=== PATIENT | male | born 1940 | race African-American/Black ===

== ENCOUNTER 2017-05-02 11:29 | Inpatient (IN) | payer OTHER, MEDICAID ==
[~2017-05-02] VITALS: Ht 167.6 cm; Wt 72.6 kg
[~2017-05-02 11:29] MED LIST: ALBU18HF2; AMLO10TA4 PO; ASPI-867; DOCU250C89; FLUT1DIS3; HYDR-4005; PRED5TAB; VALS1TAB34 PO
[2017-05-02] MEDS ORDERED: MORPHINE SULFATE 4 MG/ML CPJ (NOT FOR IM USE) IV STA (11:43)
[2017-05-02] MEDS ORDERED: ONDANSETRON HCL 4MG/2ML VIAL IV STA (11:43)
[2017-05-02 11:56] LABS: BASOPHILS % 1.9 % (0.0-2.0); EOSINOPHILS % 3.2 % (0.0-5.0); HEMATOCRIT. 38.3 % (42.0-52.0); HEMOGLOBIN. 12.8 g/dL (14.0-18.0); LYMPHOCYTES % 41.5 % (20.0-50.0); MEAN CORPUSCULAR HEMOGLOBIN 29.6 pg (28.0-32.0); MEAN CORPUSCULAR VOLUME 88.6 fL (80.0-94.0); MEAN PLATELET VOLUME 7.5 fl (7.4-10.4); MONOCYTES % 10.9 % (2.0-8.0); NEUTROPHILS % 42.5 % (40.0-76.0); PLATELET 209 x1000/uL (130-400); RED BLOOD CELL COUNT 4.33 mill/uL (4.7-6.1); RED CELL DISTRIBUTION WIDTH 16.7 % (11.6-14.6)
[2017-05-02 12:03] LABS: PROTHROMBIN TIME 10.7 sec (9.4-11.6)
[2017-05-02 12:14] LABS: CARBON DIOXIDE 28 mEq/L (21-32); CHLORIDE 105 mEq/L (98-107); TROPONIN I < 0.02 ng/mL (0.00-0.04)
[2017-05-02] MEDS ORDERED: CLONIDINE 0.1MG TABLET PO PRN (13:45)
[2017-05-02] MEDS ORDERED: ACETAMINOPHEN 325MG TABLET PO PRN (13:45)
[2017-05-02] MEDS ORDERED: DIPHENHYDRAMINE 50MG/ML VIAL IV PRN (13:45)
[2017-05-02] MEDS ORDERED: ONDANSETRON HCL 4MG/2ML VIAL IV PRN (13:45)
[2017-05-02] MEDS ORDERED: HYDROCODONE/ACETAMINOPHEN 5/325MG TABLET PO PRN (13:45)
[2017-05-02 16:16] VITALS: BP 125/66
[2017-05-02 16:26] VITALS: BP 117/58
[2017-05-02] MEDS: AMLODIPINE 2.5MG TABLET PO SCH (17:00)
[2017-05-02] MEDS: IPRATROPIUM/ALBUTEROL 0.5-3(2.5)MG/3ML NEB INH PRN (19:56)
[2017-05-02 20:00] VITALS: BP 100/46
[2017-05-02 23:32] LABS: CLARITY URINE CLEAR (CLEAR); COLOR URINE YELLOW (YELLOW); GLUCOSE URINE NEGATIVE (NEGATIVE); KETONES URINE NEGATIVE (NEGATIVE); LEUKOCYTE ESTERASE URINE NEGATIVE (NEGATIVE); NITRITE URINE NEGATIVE (NEGATIVE); OCCULT BLOOD URINE NEGATIVE (NEGATIVE); PROTEIN URINE NEGATIVE (NEGATIVE); SPECIFIC GRAVITY URINE 1.022 (1.005-1.030)
[2017-05-03] VITALS: BP 107/57
[2017-05-03 01:37] LABS: *AMPHETAMINES SCREEN URINE NEGATIVE (NEGATIVE); *BARBITURATES SCREEN URINE NEGATIVE (NEGATIVE); *BENZODIAZEPINES SCREEN URINE NEGATIVE (NEGATIVE); *COCAINE SCREEN URINE NEGATIVE (NEGATIVE); CANNABINOID URINE SCREEN NEGATIVE (NEGATIVE); METHADONE URINE SCREEN NEGATIVE (NEGATIVE); OPIATES URINE SCREEN PRESUMTIVE POSITIVE (NEGATIVE); PHENCYCLIDINE URINE SCREEN NEGATIVE (NEGATIVE)
[2017-05-03] MEDS: IPRATROPIUM/ALBUTEROL 0.5-3(2.5)MG/3ML NEB INH PRN ×4 (02:47→16:16)
[2017-05-03 04:00] VITALS: BP 104/51
[2017-05-03 06:06] LABS: BASOPHILS % 1.5 % (0.0-2.0); EOSINOPHILS % 2.4 % (0.0-5.0); HEMOGLOBIN. 11.9 g/dL (14.0-18.0); LYMPHOCYTES % 39.8 % (20.0-50.0); MEAN CORPUSCULAR HEMOGLOBIN 29.8 pg (28.0-32.0); MEAN CORPUSCULAR VOLUME 87.5 fL (80.0-94.0); MEAN PLATELET VOLUME 7.8 fl (7.4-10.4); MONOCYTES % 10.9 % (2.0-8.0); NEUTROPHILS % 45.4 % (40.0-76.0); PLATELET 194 x1000/uL (130-400); RED CELL DISTRIBUTION WIDTH 15.9 % (11.6-14.6)
[2017-05-03 06:48] LABS: CHLORIDE 102 mEq/L (98-107)
[2017-05-03 07:12] LABS: CARBON DIOXIDE 26 mEq/L (21-32); HDL CHOLESTEROL 92 mg/dL (40-59); LDL CHOLESTEROL 68 mg/dL (5-100); TROPONIN I < 0.02 ng/mL (0.00-0.04)
[2017-05-03 08:58] VITALS: BP 118/54
[2017-05-03] MEDS: AMLODIPINE 2.5MG TABLET PO SCH ×2 (09:00→17:00)
[2017-05-03] MEDS ORDERED: ASPIRIN 81MG EC TABLET PO SCH (09:00)
[2017-05-03 12:03] VITALS: BP 107/41
[2017-05-03 16:01] VITALS: BP 128/76
[2017-05-03 16:29] VITALS: BP 122/52
== END 2017-05-03 17:25 | disposition home or self-care (01) | DRG 311 ==
LOC: ER 11:29 → 6WST 13:11 → EDBEDREQ 13:14 → EDBEDREQTM 13:14 → ENRESERV 14:21
PROVIDERS: ADMIT Internal Medicine; ATTEND Internal Medicine
DX: I24.9 Acute ischemic heart disease, unspecified (principal); E46 Unspecified protein-calorie malnutrition; I11.0 Hypertensive heart disease with heart failure; I50.9 Heart failure, unspecified; J44.9 Chronic obstructive pulmonary disease, unspecified; D64.9 Anemia, unspecified; E78.1 Pure hyperglyceridemia; M19.90 Unspecified osteoarthritis, unspecified site; G89.29 Other chronic pain; F14.10 Cocaine abuse, uncomplicated; F17.210 Nicotine dependence, cigarettes, uncomplicated; Z79.82 Long term (current) use of aspirin; Z90.49 Acquired absence of other specified parts of digestive tract; Z79.899 Other long term (current) drug therapy; Z68.25 Body mass index [BMI] 25.0-25.9, adult
CPT/HCPCS: 36415; 71010; 80053; 80061; 80305; 81003; 83735; 83880; 84443; 84484; 85025; 85610; 87040; 87086; 93005; 94640; 94664; 96374; 96375; 99285; J2270; J2405; J7620

== ENCOUNTER 2017-05-06 18:59 | Emergency (ER) | payer MEDICARE, MEDICAID ==
[~2017-05-06] VITALS: Ht 180.3 cm; Wt 88.0 kg
[2017-05-06] MEDS ORDERED: IPRATROPIUM BROMIDE (0.02%) 0.5MG/2.5ML NEB HHN STA (19:30)
[2017-05-06] MEDS ORDERED: METHYLPREDNISOLONE SOD SUCC 125 MG/2 ML VIAL IV STA (19:30)
[2017-05-06] MEDS ORDERED: ALBUTEROL (0.083%) 2.5MG/3ML NEB HHN SCH (19:30)
[2017-05-06 20:38] LABS: BASOPHILS % 1.3 % (0.0-2.0); EOSINOPHILS % 1.8 % (0.0-5.0); HEMATOCRIT. 40.6 % (42.0-52.0); HEMOGLOBIN. 13.6 g/dL (14.0-18.0); MEAN CORPUSCULAR HEMOGLOBIN 29.4 pg (28.0-32.0); MEAN CORPUSCULAR VOLUME 87.7 fL (80.0-94.0); MEAN PLATELET VOLUME 7.8 fl (7.4-10.4); MONOCYTES % 8.7 % (2.0-8.0); NEUTROPHILS % 56.2 % (40.0-76.0); PLATELET 205 x1000/uL (130-400); RED BLOOD CELL COUNT 4.63 mill/uL (4.7-6.1); RED CELL DISTRIBUTION WIDTH 16.7 % (11.6-14.6)
[2017-05-06 20:43] LABS: PROTHROMBIN TIME 10.7 sec (9.4-11.6)
[2017-05-06 20:46] LABS: CARBON DIOXIDE 25 mEq/L (21-32); CHLORIDE 104 mEq/L (98-107)
[2017-05-06 20:53] LABS: TROPONIN I < 0.02 ng/mL (0.00-0.04)
[2017-05-06 23:51] VITALS: BP 113/70
== END 2017-05-06 23:51 | disposition home or self-care (01) ==
LOC: ER 20:41
DX: J44.1 Chronic obstructive pulmonary disease with (acute) exacerbation (principal); I11.0 Hypertensive heart disease with heart failure; M19.90 Unspecified osteoarthritis, unspecified site; Z79.82 Long term (current) use of aspirin
CPT/HCPCS: 36415; 80053; 83880; 84484; 85025; 85610; 93005; 99285; 99406

== ENCOUNTER 2017-05-12 22:30 | Emergency (ER) | payer MEDICARE, MEDICAID ==
[~2017-05-12] VITALS: Ht 167.6 cm; Wt 73.0 kg
[2017-05-12 22:35] VITALS: BP 135/61
== END 2017-05-13 02:37 | disposition left against medical advice (07) ==
LOC: ER 22:30
DX: Z53.21 Procedure and treatment not carried out due to patient leaving prior to being seen by health care provider (principal)

== ENCOUNTER 2017-09-19 09:55 | Inpatient (IN) | payer MEDICARE, MEDICAID ==
[~2017-09-19] VITALS: Ht 167.6 cm; Wt 70.8 kg
[~2017-09-19 09:55] MED LIST changes: -ALBU18HF2; +ALBU18HF2 INH; -ASPI-867; +ASPI-867 PO; -DOCU250C89; +DOCU250C89 PO; -FLUT1DIS3; +FLUT1DIS3 ORI; +GABA-529 PO; -HYDR-4005; +HYDR-4005 PO
[2017-09-19] MEDS ORDERED: NITROGLYCERIN OINT 1GM/INCH UDPKT TD STA (10:14)
[2017-09-19] MEDS ORDERED: IPRATROPIUM BROMIDE (0.02%) 0.5MG/2.5ML NEB HHN STA (10:14)
[2017-09-19] MEDS ORDERED: ASPIRIN 81MG TABLET PO STA (10:14)
[2017-09-19] MEDS ORDERED: ALBUTEROL (0.083%) 2.5MG/3ML NEB HHN STA (10:14)
[2017-09-19] MEDS ORDERED: METHYLPREDNISOLONE SOD SUCC 125 MG/2 ML VIAL IV STA (10:14)
[2017-09-19] MEDS ORDERED: SODIUM CHLORIDE 0.9% 1000ML BAG (SEPSIS BOLUS) IV ONE (10:15)
[2017-09-19] MEDS ORDERED: LEVOFLOXACIN 750MG PREMIX 150 ML IV ONE (10:15)
[2017-09-19] MEDS ORDERED: OSELTAMIVIR 75MG CAPSULE PO ONE (10:15)
[2017-09-19] MEDS ORDERED: ACETAMINOPHEN 325MG TABLET PO ONE (10:30)
[2017-09-19 10:45] LABS: BASOPHILS % 0.5 % (0.0-2.0); EOSINOPHILS % 0.9 % (0.0-5.0); HEMATOCRIT. 36.2 % (42.0-52.0); HEMOGLOBIN. 11.8 g/dL (14.0-18.0); LYMPHOCYTES % 17.5 % (20.0-50.0); MEAN CORPUSCULAR HEMOGLOBIN 27.9 pg (28.0-32.0); MEAN CORPUSCULAR VOLUME 85.2 fL (80.0-94.0); MEAN PLATELET VOLUME 7.1 fl (7.4-10.4); MONOCYTES % 8.2 % (2.0-8.0); NEUTROPHILS % 72.9 % (40.0-76.0); PLATELET 228 x1000/uL (130-400); RED BLOOD CELL COUNT 4.24 mill/uL (4.7-6.1); RED CELL DISTRIBUTION WIDTH 17.7 % (11.6-14.6)
[2017-09-19 10:53] LABS: PARTIAL THROMBOPLASTIN TIME 27.7 sec (23.4-31.0); PROTHROMBIN TIME 10.7 sec (9.4-11.6)
[2017-09-19 11:01] LABS: CHLORIDE 102 mEq/L (98-107); TROPONIN I < 0.02 ng/mL (0.00-0.04)
[2017-09-19 11:16] LABS: CLARITY URINE CLEAR (CLEAR); COLOR URINE YELLOW (YELLOW); KETONES URINE NEGATIVE (NEGATIVE); LEUKOCYTE ESTERASE URINE NEGATIVE (NEGATIVE); NITRITE URINE NEGATIVE (NEGATIVE); OCCULT BLOOD URINE NEGATIVE (NEGATIVE); PH URINE >=9.0 (4.5-8.0); PROTEIN URINE NEGATIVE (NEGATIVE); SPECIFIC GRAVITY URINE 1.012 (1.005-1.030); UROBILINOGEN URINE 0.2 E.U./dL (0.2-1.0)
[2017-09-19 14:30] VITALS: BP 107/51
[2017-09-19] MEDS ORDERED: HYDROCODONE/APAP 7.5/325MG 1 TAB TABLET PO PRN (15:15)
[2017-09-19] MEDS ORDERED: ACETAMINOPHEN 325MG TABLET PO PRN (15:15)
[2017-09-19] MEDS ORDERED: IPRATROPIUM/ALBUTEROL 0.5-3(2.5)MG/3ML NEB HHN PRN (15:15)
[2017-09-19 16:00] VITALS: BP 107/52
[2017-09-19 20:00] VITALS: BP 122/50
[2017-09-19 22:00] LABS: CREATINE KINASE 350 IU/L (39-308); TROPONIN I < 0.02 ng/mL (0.00-0.04)
[2017-09-20] VITALS: BP 109/50
[2017-09-20 00:50] LABS: *AMPHETAMINES SCREEN URINE NEGATIVE (NEGATIVE); *BARBITURATES SCREEN URINE NEGATIVE (NEGATIVE); *BENZODIAZEPINES SCREEN URINE NEGATIVE (NEGATIVE); *COCAINE SCREEN URINE NEGATIVE (NEGATIVE); CANNABINOID URINE SCREEN NEGATIVE (NEGATIVE); METHADONE URINE SCREEN NEGATIVE (NEGATIVE); OPIATES URINE SCREEN PRESUMTIVE POSITIVE (NEGATIVE); PHENCYCLIDINE URINE SCREEN NEGATIVE (NEGATIVE)
[2017-09-20 04:00] VITALS: BP 108/54
[2017-09-20 08:06] VITALS: BP 114/56
[2017-09-20] MEDS: AMLODIPINE 10MG TABLET PO SCH (09:30)
[2017-09-20] MEDS: GABAPENTIN 100MG CAPSULE PO SCH (09:30)
[2017-09-20] MEDS: LOSARTAN POTASSIUM 100 MG TABLET PO SCH (09:30)
[2017-09-20] MEDS: ASPIRIN 81MG TABLET PO SCH (09:31)
[2017-09-20] MEDS ORDERED: LEVOFLOXACIN 500MG PREMIX 100 ML IV SCH (10:00)
[2017-09-20] MEDS: DOCUSATE SODIUM 250MG CAPSULE PO SCH (10:23)
[2017-09-20 10:25] LABS: HEMATOCRIT. 33.2 % (42.0-52.0); HEMOGLOBIN. 10.9 g/dL (14.0-18.0); MEAN CORPUSCULAR HEMOGLOBIN 28.1 pg (28.0-32.0); MEAN CORPUSCULAR VOLUME 85.6 fL (80.0-94.0); MEAN PLATELET VOLUME 7.5 fl (7.4-10.4); PLATELET 203 x1000/uL (130-400); RED BLOOD CELL COUNT 3.88 mill/uL (4.7-6.1); RED CELL DISTRIBUTION WIDTH 17.4 % (11.6-14.6)
[2017-09-20 12:00] VITALS: BP 123/60
[2017-09-20] MEDS: LEVOFLOXACIN 500MG TABLET PO SCH (14:13)
[2017-09-20 16:00] VITALS: BP 116/54
[2017-09-20] MEDS: ENOXAPARIN 40MG/0.4ML SYR SUBCUT SCH (19:54)
[2017-09-20 20:00] VITALS: BP 116/36
[2017-09-20 21:04] LABS: ATYPICAL LYMPHOCYTES 1; PLATELET ESTIMATE NORMAL
[2017-09-21] VITALS: BP 116/49
[2017-09-21 04:00] VITALS: BP 109/46
[2017-09-21 08:13] VITALS: BP 129/63
[2017-09-21] MEDS: GABAPENTIN 100MG CAPSULE PO SCH (08:27)
[2017-09-21] MEDS: AMLODIPINE 10MG TABLET PO SCH (08:27)
[2017-09-21] MEDS: DOCUSATE SODIUM 250MG CAPSULE PO SCH (08:27)
[2017-09-21] MEDS: ASPIRIN 81MG TABLET PO SCH (08:27)
[2017-09-21] MEDS: LOSARTAN POTASSIUM 100 MG TABLET PO SCH (08:27)
[2017-09-21] MEDS: LEVOFLOXACIN 500MG TABLET PO SCH (11:17)
[2017-09-21 12:49] VITALS: BP 113/54
[2017-09-21] MEDS ORDERED: VANCOMYCIN 1500MG in DEXTROSE 5% WATER 250ML IV NR (14:00)
[2017-09-21] MEDS: ENOXAPARIN 40MG/0.4ML SYR SUBCUT SCH (17:49)
[2017-09-21 20:27] VITALS: BP 112/53
[2017-09-21] MEDS: CLOTRIMAZOLE/BETAMETHASONE 1/0.05% CREAM 15GM TOP SCH (21:36)
[2017-09-22] MEDS: VANCOMYCIN 750 MG PREMIX 150 ML IV SCH ×2 (02:44→14:07)
[2017-09-22 07:06] LABS: CHLORIDE 109 mEq/L (98-107); PHOSPHORUS 1.7 mg/dL (2.5-4.9); T4 FREE 0.81 ng/dL (0.76-1.46)
[2017-09-22 07:13] LABS: TOTAL IRON BINDING CAPACITY 260 ug/dL (250-450)
[2017-09-22 08:00] VITALS: BP 135/61
[2017-09-22] MEDS: GABAPENTIN 100MG CAPSULE PO SCH (09:24)
[2017-09-22] MEDS: AMLODIPINE 10MG TABLET PO SCH (09:24)
[2017-09-22] MEDS: ASPIRIN 81MG TABLET PO SCH (09:24)
[2017-09-22] MEDS: LOSARTAN POTASSIUM 100 MG TABLET PO SCH (09:24)
[2017-09-22] MEDS: DOCUSATE SODIUM 250MG CAPSULE PO SCH (09:24)
[2017-09-22 09:26] LABS: EOSINOPHILS % 2.3 % (0.0-5.0); HEMATOCRIT. 34.4 % (42.0-52.0); HEMOGLOBIN. 11.2 g/dL (14.0-18.0); LYMPHOCYTES % 35.8 % (20.0-50.0); MEAN CORPUSCULAR HEMOGLOBIN 28.1 pg (28.0-32.0); MEAN PLATELET VOLUME 7.5 fl (7.4-10.4); MONOCYTES % 7.7 % (2.0-8.0); NEUTROPHILS % 53.2 % (40.0-76.0); PLATELET 232 x1000/uL (130-400); RED BLOOD CELL COUNT 3.99 mill/uL (4.7-6.1); RED CELL DISTRIBUTION WIDTH 17.5 % (11.6-14.6)
[2017-09-22] MEDS: CLOTRIMAZOLE/BETAMETHASONE 1/0.05% CREAM 15GM TOP SCH ×2 (09:26→22:53)
[2017-09-22 12:00] VITALS: BP 105/57
[2017-09-22] MEDS ORDERED: SODIUM PHOS,M-BASIC-D-BASIC 30 MM in DEXT 5% WATER 500 ML IV NR (15:00)
[2017-09-22 16:00] VITALS: BP 153/53
[2017-09-22] MEDS: ENOXAPARIN 40MG/0.4ML SYR SUBCUT SCH (18:12)
[2017-09-22 20:00] VITALS: BP 111/53
[2017-09-23] VITALS: BP 124/56
[2017-09-23] MEDS: VANCOMYCIN 750 MG PREMIX 150 ML IV SCH (02:22)
[2017-09-23 04:00] VITALS: BP 117/54
[2017-09-23 07:47] LABS: BASOPHILS % 1.8 % (0.0-2.0); EOSINOPHILS % 6.6 % (0.0-5.0); HEMATOCRIT. 35.6 % (42.0-52.0); HEMOGLOBIN. 11.7 g/dL (14.0-18.0); LYMPHOCYTES % 39.9 % (20.0-50.0); MEAN CORPUSCULAR HEMOGLOBIN 27.9 pg (28.0-32.0); MONOCYTES % 9.4 % (2.0-8.0); NEUTROPHILS % 42.3 % (40.0-76.0); RED BLOOD CELL COUNT 4.19 mill/uL (4.7-6.1); RED CELL DISTRIBUTION WIDTH 17.3 % (11.6-14.6)
[2017-09-23 08:00] VITALS: BP 128/65
[2017-09-23 08:20] LABS: CHLORIDE 106 mEq/L (98-107); PHOSPHORUS 2.8 mg/dL (2.5-4.9)
[2017-09-23 08:45] LABS: MEAN PLATELET VOLUME 7.5 fl (7.4-10.4); PLATELET 206 x1000/uL (130-400)
[2017-09-23] MEDS: AMLODIPINE 10MG TABLET PO SCH (08:59)
[2017-09-23] MEDS: GABAPENTIN 100MG CAPSULE PO SCH (08:59)
[2017-09-23] MEDS: LOSARTAN POTASSIUM 100 MG TABLET PO SCH (08:59)
[2017-09-23] MEDS: DOCUSATE SODIUM 250MG CAPSULE PO SCH (08:59)
[2017-09-23] MEDS: CLOTRIMAZOLE/BETAMETHASONE 1/0.05% CREAM 15GM TOP SCH (09:00)
[2017-09-23] MEDS: ASPIRIN 81MG TABLET PO SCH (09:02)
[2017-09-23 12:00] VITALS: BP 132/60
[2017-09-23 12:22] VITALS: BP 132/60
== END 2017-09-23 13:35 | disposition home or self-care (01) | DRG 871 ==
LOC: ER 09:55 → 5WST 11:42 → EDBEDREQ 11:44 → ENRESERV 12:43
PROVIDERS: ADMIT Internal Medicine; ATTEND Internal Medicine
DX: A41.2 Sepsis due to unspecified staphylococcus (principal); J18.9 Pneumonia, unspecified organism; J96.20 Acute and chronic respiratory failure, unspecified whether with hypoxia or hypercapnia; J44.0 Chronic obstructive pulmonary disease with (acute) lower respiratory infection; J44.1 Chronic obstructive pulmonary disease with (acute) exacerbation; F11.20 Opioid dependence, uncomplicated; I11.9 Hypertensive heart disease without heart failure; B18.2 Chronic viral hepatitis C; M51.36 Other intervertebral disc degeneration, lumbar region; F10.10 Alcohol abuse, uncomplicated; M94.0 Chondrocostal junction syndrome [Tietze]; Z79.82 Long term (current) use of aspirin; Z79.899 Other long term (current) drug therapy; Z91.19 Patient's noncompliance with other medical treatment and regimen
CPT/HCPCS: 36415; 71045; 71046; 72100; 80053; 80069; 80076; 80305; 81003; 82550; 82553; 83036; 83540; 83550; 83605; 83690; 83735; 83880; 84100; 84439; 84481; 84484; 84550; 85025; 85610; 85651; 85730; 86850; 86900; 87040; 87086; 87804; 93005; 93306; 93970; 94644; 96365; 99285; C1893; J1650; J1956; J2930; J3370; J3490; J7030; J7060; J7611

== ENCOUNTER 2018-02-27 10:40 | Emergency (ER) | payer MEDICARE, MEDICAID ==
[~2018-02-27] VITALS: Ht 167.6 cm; Wt 73.0 kg
[2018-02-27] MEDS ORDERED: ACETAMINOPHEN WITH CODEINE 300/30MG TABLET PO ONE (13:00)
[2018-02-27 14:20] VITALS: BP 133/70
== END 2018-02-27 14:40 | disposition home or self-care (01) ==
LOC: ER 11:36
DX: M79.675 Pain in left toe(s) (principal); J45.909 Unspecified asthma, uncomplicated; I10 Essential (primary) hypertension; Z79.82 Long term (current) use of aspirin; Z87.891 Personal history of nicotine dependence
CPT/HCPCS: 73630; 99284

== ENCOUNTER 2018-05-20 11:36 | Emergency (ER) | payer MEDICARE, MEDICAID ==
[~2018-05-20] VITALS: Ht 167.6 cm; Wt 77.0 kg
[~2018-05-20 11:36] MED LIST changes: +ASA5EC PO; -ASPI-867 PO
[2018-05-20 11:44] VITALS: BP 135/54
== END 2018-05-20 18:19 | disposition left against medical advice (07) ==
LOC: ER 11:36
DX: Z76.0 Encounter for issue of repeat prescription (principal); Z53.21 Procedure and treatment not carried out due to patient leaving prior to being seen by health care provider

== ENCOUNTER 2018-10-10 16:33 | Emergency (ER) | payer MEDICARE, MEDICAID ==
[~2018-10-10] VITALS: Ht 175.3 cm; Wt 74.0 kg
[2018-10-11] MEDS ORDERED: MORPHINE SULFATE 4 MG/ML CPJ (NOT FOR IM USE) IV ONE
[2018-10-11] MEDS ORDERED: ONDANSETRON HCL 4MG/2ML INJ IV ONE
[2018-10-11 01:07] LABS: BASOPHILS % 1.9 % (0.0-2.0); EOSINOPHILS % 2.5 % (0.0-5.0); HEMATOCRIT. 36.4 % (42.0-52.0); LYMPHOCYTES % 39.8 % (20.0-50.0); MEAN CORPUSCULAR HEMOGLOBIN 27.2 pg (28.0-32.0); MEAN CORPUSCULAR VOLUME 82.7 fL (80.0-94.0); MONOCYTES % 10.5 % (2.0-8.0); NEUTROPHILS % 45.3 % (40.0-76.0); PLATELET 266 x1000/uL (130-400); RED CELL DISTRIBUTION WIDTH 16.3 % (11.6-14.6)
[2018-10-11 01:08] LABS: CHLORIDE 103 mEq/L (98-107)
[2018-10-11 01:11] LABS: INR 1.1; PROTHROMBIN TIME 10.6 sec (9.1-11.1)
[2018-10-11 02:07] LABS: CLARITY URINE CLEAR (CLEAR); COLOR URINE YELLOW (YELLOW); KETONES URINE NEGATIVE (NEGATIVE); LEUKOCYTE ESTERASE URINE NEGATIVE (NEGATIVE); NITRITE URINE NEGATIVE (NEGATIVE); OCCULT BLOOD URINE NEGATIVE (NEGATIVE); PROTEIN URINE NEGATIVE (NEGATIVE); SPECIFIC GRAVITY URINE 1.021 (1.005-1.030); UROBILINOGEN URINE 0.2 E.U./dL (0.2-1.0)
[2018-10-11 05:10] VITALS: BP 146/75
== END 2018-10-11 05:18 | disposition home or self-care (01) ==
LOC: ER 16:33
DX: R10.13 Epigastric pain (principal); I10 Essential (primary) hypertension; J45.909 Unspecified asthma, uncomplicated; Z79.82 Long term (current) use of aspirin
CPT/HCPCS: 36415; 71045; 76705; 80053; 81003; 83690; 84484; 85025; 85610; 96374; 96375; 99284; C1893; J2270; J2405

== ENCOUNTER 2018-12-17 08:37 | Inpatient (IN) | payer MEDICARE, MEDICAID ==
[~2018-12-17] VITALS: Ht 167.6 cm; Wt 72.6 kg
[2018-12-17] MEDS ORDERED: ALBUTEROL (0.083%) 2.5MG/3ML NEB HHN STA (10:18)
[2018-12-17] MEDS ORDERED: IPRATROPIUM BROMIDE (0.02%) 0.5MG/2.5ML NEB HHN STA (10:18)
[2018-12-17] MEDS ORDERED: METHYLPREDNISOLONE SOD SUCC 125 MG/2 ML VIAL IV STA (10:18)
[2018-12-17 10:34] LABS: BASOPHILS % 1.3 % (0.0-2.0); EOSINOPHILS % 0.4 % (0.0-5.0); HEMATOCRIT. 34.4 % (42.0-52.0); HEMOGLOBIN. 11.4 g/dL (14.0-18.0); LYMPHOCYTES % 32.4 % (20.0-50.0); MEAN CORPUSCULAR HEMOGLOBIN 27.7 pg (28.0-32.0); MEAN CORPUSCULAR VOLUME 83.8 fL (80.0-94.0); MEAN PLATELET VOLUME 7.4 fl (7.4-10.4); MONOCYTES % 7.4 % (2.0-8.0); NEUTROPHILS % 58.5 % (40.0-76.0); PLATELET 212 x1000/uL (130-400); RED CELL DISTRIBUTION WIDTH 21.5 % (11.6-14.6)
[2018-12-17 10:39] LABS: CHLORIDE 110 mEq/L (98-107)
[2018-12-17] MEDS ORDERED: ALBUTEROL (0.5%) 2.5MG/0.5ML NEB HHN ONE (10:40)
[2018-12-17] MEDS ORDERED: IPRATROPIUM BROMIDE (0.02%) 0.5MG/2.5ML NEB ONE (10:41)
[2018-12-17] MEDS ORDERED: MAGNESIUM 2 G PREMIX 50 ML IV ONE (12:15)
[2018-12-17 15:50] VITALS: BP 157/63
[2018-12-17 16:14] VITALS: BP 135/63
[2018-12-17] MEDS ORDERED: PNEUMOCOCCAL 23-VAL P-SAC VAC 0.5 ML IM ONE (16:15)
[2018-12-17] MEDS: IPRATROPIUM/ALBUTEROL 0.5-3(2.5)MG/3ML NEB HHN SCH ×2 (16:50→21:48)
[2018-12-17] MEDS: LOSARTAN POTASSIUM 100 MG TABLET PO SCH (16:56)
[2018-12-17] MEDS: LEVOFLOXACIN 500MG TABLET PO SCH (16:57)
[2018-12-17] MEDS: METHYLPREDNISOLONE SOD SUCC 125 MG/2 ML VIAL IV SCH ×2 (17:00→23:47)
[2018-12-17] MEDS: HYDROCODONE/ACETAMINOPHEN 5/325MG TABLET PO PRN (18:14)
[2018-12-17 18:37] LABS: *AMPHETAMINES SCREEN URINE NEGATIVE (NEGATIVE); *BARBITURATES SCREEN URINE NEGATIVE (NEGATIVE); *BENZODIAZEPINES SCREEN URINE NEGATIVE (NEGATIVE); *COCAINE SCREEN URINE NEGATIVE (NEGATIVE); METHADONE URINE SCREEN NEGATIVE (NEGATIVE); OPIATES URINE SCREEN NEGATIVE (NEGATIVE)
[2018-12-17 18:38] LABS: CANNABINOID URINE SCREEN NEGATIVE (NEGATIVE); PHENCYCLIDINE URINE SCREEN NEGATIVE (NEGATIVE)
[2018-12-18] VITALS: BP 133/53
[2018-12-18] MEDS: IPRATROPIUM/ALBUTEROL 0.5-3(2.5)MG/3ML NEB HHN SCH ×6 (00:50→19:51)
[2018-12-18 04:00] VITALS: BP 130/50
[2018-12-18] MEDS: METHYLPREDNISOLONE SOD SUCC 125 MG/2 ML VIAL IV SCH ×4 (05:46→23:27)
[2018-12-18 08:00] VITALS: BP 112/56
[2018-12-18] MEDS: LOSARTAN POTASSIUM 100 MG TABLET PO SCH (08:46)
[2018-12-18] MEDS ORDERED: ACETAMINOPHEN 500MG TABLET PO PRN (10:00)
[2018-12-18] MEDS: LEVOFLOXACIN 500MG TABLET PO SCH (11:06)
[2018-12-18] MEDS: ENOXAPARIN 40MG/0.4ML SYR SUBCUT SCH (11:07)
[2018-12-18 12:00] VITALS: BP 117/54
[2018-12-18 16:55] VITALS: BP 111/48
[2018-12-18 20:00] VITALS: BP 120/64
[2018-12-18] MEDS: HYDROCODONE/ACETAMINOPHEN 5/325MG TABLET PO PRN (23:27)
[2018-12-19] VITALS: BP 108/55
[2018-12-19] MEDS: IPRATROPIUM/ALBUTEROL 0.5-3(2.5)MG/3ML NEB HHN SCH ×5 (00:02→16:30)
[2018-12-19 04:00] VITALS: BP 130/66
[2018-12-19] MEDS: METHYLPREDNISOLONE SOD SUCC 125 MG/2 ML VIAL IV SCH (05:22)
[2018-12-19 08:00] VITALS: BP 122/48
[2018-12-19] MEDS: LOSARTAN POTASSIUM 100 MG TABLET PO SCH (08:28)
[2018-12-19] MEDS: ENOXAPARIN 40MG/0.4ML SYR SUBCUT SCH (08:28)
[2018-12-19] MEDS: HYDROCODONE/ACETAMINOPHEN 5/325MG TABLET PO PRN (09:58)
[2018-12-19] MEDS: LEVOFLOXACIN 500MG TABLET PO SCH (10:59)
[2018-12-19 12:00] VITALS: BP 120/52
[2018-12-19 13:41] VITALS: BP 120/52
[2018-12-19] MEDS ORDERED: METHYLPREDNISOLONE SOD SUCC 40 MG/ML VIAL IV SCH (18:00)
== END 2018-12-19 16:55 | disposition home or self-care (01) | DRG 193 ==
LOC: ER 08:37 → 8WST 12:04 → EDBEDREQ 12:09 → ENRESERV 12:20 → 8WST 18:41
PROVIDERS: ADMIT Internal Medicine; ATTEND Internal Medicine
DX: J18.9 Pneumonia, unspecified organism (principal); J96.20 Acute and chronic respiratory failure, unspecified whether with hypoxia or hypercapnia; J44.0 Chronic obstructive pulmonary disease with (acute) lower respiratory infection; J44.1 Chronic obstructive pulmonary disease with (acute) exacerbation; F32.9 Major depressive disorder, single episode, unspecified; M17.10 Unilateral primary osteoarthritis, unspecified knee; R63.4 Abnormal weight loss; B18.2 Chronic viral hepatitis C; G89.4 Chronic pain syndrome; I10 Essential (primary) hypertension; K74.60 Unspecified cirrhosis of liver; Z79.51 Long term (current) use of inhaled steroids; Z79.82 Long term (current) use of aspirin; Z79.899 Other long term (current) drug therapy; Z86.73 Personal history of transient ischemic attack (TIA), and cerebral infarction without residual deficits; Z87.891 Personal history of nicotine dependence; Z90.49 Acquired absence of other specified parts of digestive tract; Z91.19 Patient's noncompliance with other medical treatment and regimen
CPT/HCPCS: 36415; 71045; 74018; 76700; 80305; 83880; 84484; 90732; 93005; 93970; 94640; 96374; 99285; J1650; J2930; J7611; J7620

== ENCOUNTER 2019-05-22 11:17 | Emergency (ER) | payer BC, MEDICAID ==
[~2019-05-22 11:17] MED LIST changes: -ASA5EC PO; +ASPI325T85 PO
== END 2019-05-22 18:10 | disposition left against medical advice (07) ==
LOC: ER 11:17
DX: R68.89 Other general symptoms and signs (principal); Z53.21 Procedure and treatment not carried out due to patient leaving prior to being seen by health care provider

== ENCOUNTER 2019-06-04 12:56 | Emergency (ER) | payer BC, MEDICAID ==
[~2019-06-04] VITALS: Ht 167.6 cm; Wt 75.0 kg
[2019-06-04] MEDS ORDERED: MORPHINE SULFATE 4 MG/ML CPJ (NOT FOR IM USE) IV STA (18:09)
[2019-06-04] MEDS ORDERED: ONDANSETRON HCL 4MG/2ML INJ IV STA (18:09)
[2019-06-04] MEDS ORDERED: SODIUM CHLORIDE 0.9% 1,000 ML IV ONE (18:09)
[2019-06-04 19:22] LABS: CLARITY URINE CLEAR (CLEAR); COLOR URINE YELLOW (YELLOW); KETONES URINE NEGATIVE (NEGATIVE); LEUKOCYTE ESTERASE URINE NEGATIVE (NEGATIVE); NITRITE URINE NEGATIVE (NEGATIVE); OCCULT BLOOD URINE NEGATIVE (NEGATIVE); PH URINE 5.5 (4.5-8.0); PROTEIN URINE NEGATIVE (NEGATIVE); SPECIFIC GRAVITY URINE 1.021 (1.005-1.030)
[2019-06-04 20:00] LABS: BASOPHILS % 1.1 % (0.0-2.0); EOSINOPHILS % 0.5 % (0.0-5.0); HEMATOCRIT. 33.8 % (42.0-52.0); HEMOGLOBIN. 11.1 g/dL (14.0-18.0); LYMPHOCYTES % 36.3 % (20.0-50.0); MEAN CORPUSCULAR HEMOGLOBIN 26.4 pg (28.0-32.0); MEAN CORPUSCULAR VOLUME 80.3 fL (80.0-94.0); MEAN PLATELET VOLUME 6.6 fl (7.4-10.4); NEUTROPHILS % 54.1 % (40.0-76.0); PLATELET 245 x1000/uL (130-400); RED BLOOD CELL COUNT 4.21 mill/uL (4.7-6.1); RED CELL DISTRIBUTION WIDTH 20.5 % (11.6-14.6)
[2019-06-04 20:05] LABS: CHLORIDE 106 mEq/L (98-107)
[2019-06-04 20:07] LABS: PROTHROMBIN TIME 10.7 sec (9.6-11.0)
[2019-06-04 22:30] VITALS: BP 112/81
== END 2019-06-04 22:49 | disposition home or self-care (01) ==
LOC: ER 12:56 → CANBEDREQ 23:17
DX: E86.0 Dehydration (principal); R10.32 Left lower quadrant pain; I10 Essential (primary) hypertension; J44.9 Chronic obstructive pulmonary disease, unspecified; M19.90 Unspecified osteoarthritis, unspecified site; Z90.49 Acquired absence of other specified parts of digestive tract
CPT/HCPCS: 36415; 71045; 74176; 80053; 81003; 83690; 85025; 85610; 96361; 96374; 99284; J2270; J2405; J7030

== ENCOUNTER 2019-07-12 18:40 | Inpatient (IN) | payer MEDICARE, MEDICAID ==
[~2019-07-12] VITALS: Ht 167.6 cm; Wt 73.0 kg
[2019-07-12] MEDS ORDERED: GLUCAGON,HUMAN RECOMBINANT 1MG/VIAL IV ONE (20:30)
[2019-07-12] MEDS ORDERED: MORPHINE SULFATE 10 MG/ML CPJ IM ONE (23:00)
[2019-07-12] MEDS ORDERED: MORPHINE SULFATE 2 MG/ML CPJ (NOT FOR IM USE) IV SCH (23:15)
[2019-07-12] MEDS ORDERED: CLONIDINE 0.1MG TABLET PO PRN (23:15)
[2019-07-12] MEDS ORDERED: ONDANSETRON HCL 4MG/2ML INJ IV PRN (23:15)
[2019-07-12] MEDS ORDERED: ACETAMINOPHEN 325MG TABLET PO PRN (23:15)
[2019-07-12 23:30] LABS: BASOPHILS % 0.7 % (0.0-2.0); EOSINOPHILS % 0.6 % (0.0-5.0); HEMATOCRIT. 33.3 % (42.0-52.0); HEMOGLOBIN. 11.1 g/dL (14.0-18.0); LYMPHOCYTES % 9.4 % (20.0-50.0); MEAN CORPUSCULAR VOLUME 80.9 fL (80.0-94.0); MEAN PLATELET VOLUME 7.3 fl (7.4-10.4); MONOCYTES % 5.7 % (2.0-8.0); NEUTROPHILS % 83.6 % (40.0-76.0); PLATELET 244 x1000/uL (130-400); RED BLOOD CELL COUNT 4.12 mill/uL (4.7-6.1); RED CELL DISTRIBUTION WIDTH 20.5 % (11.6-14.6)
[2019-07-12 23:33] LABS: CLARITY URINE CLEAR (CLEAR); COLOR URINE YELLOW (YELLOW); KETONES URINE TRACE (NEGATIVE); LEUKOCYTE ESTERASE URINE NEGATIVE (NEGATIVE); NITRITE URINE NEGATIVE (NEGATIVE); OCCULT BLOOD URINE NEGATIVE (NEGATIVE); PROTEIN URINE NEGATIVE (NEGATIVE); UROBILINOGEN URINE 0.2 E.U./dL (0.2-1.0)
[2019-07-12 23:39] LABS: CHLORIDE 110 mEq/L (98-107); PROTHROMBIN TIME 10.5 sec (9.6-11.0)
[2019-07-13] MEDS: DEXT 5%/0.45% NACL 1000ML 1,000 ML IV SCH ×2 (05:17→21:25)
[2019-07-13 05:25] LABS: BASOPHILS % 0.6 % (0.0-2.0); EOSINOPHILS % 0.6 % (0.0-5.0); HEMATOCRIT. 34.1 % (42.0-52.0); LYMPHOCYTES % 13.7 % (20.0-50.0); MEAN CORPUSCULAR HEMOGLOBIN 26.1 pg (28.0-32.0); MEAN CORPUSCULAR VOLUME 81.1 fL (80.0-94.0); MEAN PLATELET VOLUME 7.5 fl (7.4-10.4); MONOCYTES % 5.5 % (2.0-8.0); NEUTROPHILS % 79.6 % (40.0-76.0); PLATELET 258 x1000/uL (130-400); RED CELL DISTRIBUTION WIDTH 20.7 % (11.6-14.6)
[2019-07-13 05:28] LABS: CHLORIDE 110 mEq/L (98-107)
[2019-07-13] MEDS ORDERED: PANTOPRAZOLE SODIUM 40 MG/VIAL IV SCH (10:15)
[2019-07-13 13:22] LABS: *COCAINE SCREEN URINE NEGATIVE (NEGATIVE); METHADONE URINE SCREEN NEGATIVE (NEGATIVE)
[2019-07-13 13:23] LABS: *AMPHETAMINES SCREEN URINE NEGATIVE (NEGATIVE); *BARBITURATES SCREEN URINE NEGATIVE (NEGATIVE); *BENZODIAZEPINES SCREEN URINE NEGATIVE (NEGATIVE); OPIATES URINE SCREEN PRESUMTIVE POSITIVE (NEGATIVE); PHENCYCLIDINE URINE SCREEN NEGATIVE (NEGATIVE)
[2019-07-13 13:24] LABS: CANNABINOID URINE SCREEN NEGATIVE (NEGATIVE)
[2019-07-13] MEDS ORDERED: FENTANYL CITRATE/PF 50MCG/ML 2ML VIAL ONE (16:20)
[2019-07-13] MEDS ORDERED: MIDAZOLAM HCL 5 MG/5 ML VIAL ONE (16:20)
[2019-07-13] MEDS ORDERED: FENTANYL CITRATE/PF 50MCG/ML 2ML VIAL IV PRN (16:21)
[2019-07-13] MEDS ORDERED: DIAZEPAM 5 MG/ML 2ML CPJ ONE (16:21)
[2019-07-13] MEDS ORDERED: MIDAZOLAM HCL 2 MG/2 ML VIAL IV PRN (16:22)
[2019-07-13] MEDS ORDERED: DIAZEPAM 5 MG/ML 2ML CPJ IV PRN (16:24)
[2019-07-13 18:18] VITALS: BP 147/57
[2019-07-13 18:21] VITALS: BP 147/57
[2019-07-13 20:00] VITALS: BP 114/54
[2019-07-13] MEDS: PANTOPRAZOLE SODIUM 40 MG/VIAL IV SCH (21:24)
[2019-07-13] MEDS: SUCRALFATE 1 G/10 ML UDC PO SCH (21:24)
[2019-07-14] VITALS: BP 118/70
[2019-07-14 04:00] VITALS: BP 107/56
[2019-07-14] MEDS: SUCRALFATE 1 G/10 ML UDC PO SCH ×4 (06:23→20:45)
[2019-07-14 08:00] VITALS: BP 115/50
[2019-07-14] MEDS: PANTOPRAZOLE SODIUM 40 MG/VIAL IV SCH (09:00)
[2019-07-14] MEDS: DEXT 5%/0.45% NACL 1000ML 1,000 ML IV SCH ×2 (10:00→20:45)
[2019-07-14 12:00] VITALS: BP 113/59
[2019-07-14] MEDS: ENOXAPARIN 40MG/0.4ML SYR SUBCUT SCH (13:13)
[2019-07-14 16:00] VITALS: BP 118/53
[2019-07-14] MEDS: IPRATROPIUM/ALBUTEROL 0.5-3(2.5)MG/3ML NEB HHN SCH ×2 (16:15→21:28)
[2019-07-14 20:00] VITALS: BP 117/53
[2019-07-15] VITALS: BP 116/70
[2019-07-15] MEDS: IPRATROPIUM/ALBUTEROL 0.5-3(2.5)MG/3ML NEB HHN SCH ×2 (02:43→08:56)
[2019-07-15 04:00] VITALS: BP 105/56
[2019-07-15] MEDS: SUCRALFATE 1 G/10 ML UDC PO SCH ×2 (06:45→12:10)
[2019-07-15 08:00] VITALS: BP 127/52
[2019-07-15] MEDS: PANTOPRAZOLE SODIUM 40 MG/VIAL IV SCH (08:20)
[2019-07-15] MEDS: ENOXAPARIN 40MG/0.4ML SYR SUBCUT SCH (08:20)
[2019-07-15 10:21] VITALS: BP 127/46
[2019-07-15 12:00] VITALS: BP 132/53
[2019-07-15] MEDS ORDERED: INFLUENZA VIRUS VACCINE(AFLURIA) 0.5ML SYR IM ONE (15:00)
== END 2019-07-15 15:00 | disposition home or self-care (01) | DRG 381 ==
LOC: ER 18:40 → 8WST 23:16 → ENRESERV 07-13 16:05
PROVIDERS: ADMIT Internal Medicine; ATTEND Internal Medicine
PROC: 0DB68ZX Excision of Stomach, Via Natural or Artificial Opening Endoscopic, Diagnostic (ICD-10-PCS; principal; 2019-07-13)
DX: K22.10 Ulcer of esophagus without bleeding (principal); J44.1 Chronic obstructive pulmonary disease with (acute) exacerbation; T18.128A Food in esophagus causing other injury, initial encounter; K29.70 Gastritis, unspecified, without bleeding; I10 Essential (primary) hypertension; F03.90 Unspecified dementia, unspecified severity, without behavioral disturbance, psychotic disturbance, mood disturbance, and anxiety; E78.5 Hyperlipidemia, unspecified; J44.9 Chronic obstructive pulmonary disease, unspecified; K74.60 Unspecified cirrhosis of liver; B18.2 Chronic viral hepatitis C; D64.9 Anemia, unspecified; G89.29 Other chronic pain; M54.5 Low back pain; M19.90 Unspecified osteoarthritis, unspecified site; F32.9 Major depressive disorder, single episode, unspecified; K57.90 Diverticulosis of intestine, part unspecified, without perforation or abscess without bleeding; R47.02 Dysphasia; K59.00 Constipation, unspecified; M85.80 Other specified disorders of bone density and structure, unspecified site; T17.228A Food in pharynx causing other injury, initial encounter; Z79.51 Long term (current) use of inhaled steroids; Z91.19 Patient's noncompliance with other medical treatment and regimen; Z79.82 Long term (current) use of aspirin; Z79.899 Other long term (current) drug therapy; Z87.891 Personal history of nicotine dependence; Z90.49 Acquired absence of other specified parts of digestive tract
CPT/HCPCS: 36415; 70360; 71045; 71250; 80305; 81003; 88305; 88313; 90686; 93005; 93970; 96361; 96374; 96375; 99285; C9113; J1610; J1650; J2250; J2270; J2405; J3010; J7620

== ENCOUNTER 2019-11-20 23:57 | Emergency (ER) | payer MEDICARE, MEDICAID ==
[~2019-11-20] VITALS: Ht 167.6 cm; Wt 72.5 kg
[~2019-11-20 23:57] MED LIST changes: -HYDR-4005 PO; -PRED5TAB
[2019-11-21 01:57] LABS: BASOPHILS % 0.7 % (0.0-2.0); EOSINOPHILS % 1.3 % (0.0-5.0); HEMATOCRIT. 31.4 % (42.0-52.0); HEMOGLOBIN. 10.3 g/dL (14.0-18.0); LYMPHOCYTES % 38.4 % (20.0-50.0); MEAN CORPUSCULAR HEMOGLOBIN 25.5 pg (28.0-32.0); MEAN CORPUSCULAR VOLUME 77.6 fL (80.0-94.0); MEAN PLATELET VOLUME 6.6 fl (7.4-10.4); MONOCYTES % 5.6 % (2.0-8.0); PLATELET 246 x1000/uL (130-400); RED BLOOD CELL COUNT 4.05 mill/uL (4.7-6.1); RED CELL DISTRIBUTION WIDTH 19.6 % (11.6-14.6)
[2019-11-21 02:30] LABS: CHLORIDE 104 mEq/L (98-107)
[2019-11-21 03:09] VITALS: BP 128/48
== END 2019-11-21 03:13 | disposition home or self-care (01) ==
LOC: ER 23:57
DX: J44.9 Chronic obstructive pulmonary disease, unspecified (principal); R21 Rash and other nonspecific skin eruption; I10 Essential (primary) hypertension; M19.90 Unspecified osteoarthritis, unspecified site; G47.30 Sleep apnea, unspecified; Z90.49 Acquired absence of other specified parts of digestive tract; Z79.82 Long term (current) use of aspirin
CPT/HCPCS: 36415; 71045; 80053; 83880; 84484; 85025; 93005; 99285

== ENCOUNTER 2020-04-05 09:01 | Emergency (ER) | payer BC, MEDICAID ==
[~2020-04-05] VITALS: Ht 167.6 cm; Wt 78.0 kg
[2020-04-05] MEDS ORDERED: SODIUM CHLORIDE 0.9% 1,000 ML IV ONE (09:49)
[2020-04-05] MEDS ORDERED: MORPHINE SULFATE 4 MG/ML CPJ (NOT FOR IM USE) IV STA (09:49)
[2020-04-05 10:19] LABS: CLARITY URINE CLEAR (CLEAR); COLOR URINE YELLOW (YELLOW); KETONES URINE NEGATIVE (NEGATIVE); LEUKOCYTE ESTERASE URINE NEGATIVE (NEGATIVE); NITRITE URINE NEGATIVE (NEGATIVE); OCCULT BLOOD URINE NEGATIVE (NEGATIVE); PH URINE 5.5 (4.5-8.0); PROTEIN URINE NEGATIVE (NEGATIVE); UROBILINOGEN URINE 0.2 E.U./dL (0.2-1.0)
[2020-04-05 10:25] LABS: CHLORIDE 109 mEq/L (98-107)
[2020-04-05 10:28] LABS: BASOPHILS % 1.6 % (0.0-2.0); EOSINOPHILS % 2.1 % (0.0-5.0); HEMATOCRIT. 29.2 % (42.0-52.0); HEMOGLOBIN. 9.5 g/dL (14.0-18.0); LYMPHOCYTES % 31.6 % (20.0-50.0); MEAN CORPUSCULAR HEMOGLOBIN 25.9 pg (28.0-32.0); MEAN CORPUSCULAR VOLUME 79.9 fL (80.0-94.0); MEAN PLATELET VOLUME 7.4 fl (7.4-10.4); MONOCYTES % 8.6 % (2.0-8.0); NEUTROPHILS % 56.1 % (40.0-76.0); PLATELET 215 x1000/uL (130-400); PROTHROMBIN TIME 10.6 sec (9.6-11.0); RED BLOOD CELL COUNT 3.66 mill/uL (4.7-6.1); RED CELL DISTRIBUTION WIDTH 21.4 % (11.6-14.6)
[2020-04-05 11:42] VITALS: BP 140/40
== END 2020-04-05 13:56 | disposition home or self-care (01) ==
LOC: ER 09:01
DX: R10.32 Left lower quadrant pain (principal); K59.00 Constipation, unspecified; D64.9 Anemia, unspecified; I10 Essential (primary) hypertension; J44.9 Chronic obstructive pulmonary disease, unspecified; Z79.899 Other long term (current) drug therapy; Z79.82 Long term (current) use of aspirin; Z90.49 Acquired absence of other specified parts of digestive tract
CPT/HCPCS: 36415; 74176; 80053; 81003; 83690; 85025; 85610; 93005; 96361; 96374; 99285; J2270; J7030

== ENCOUNTER 2020-07-06 18:19 | Emergency (ER) | payer MEDICARE, MEDICAID ==
[~2020-07-06] VITALS: Ht 172.7 cm; Wt 59.0 kg
[~2020-07-06 18:19] MED LIST changes: -VALS1TAB34 PO
[2020-07-06 18:26] VITALS: BP 142/76
== END 2020-07-06 19:30 | disposition left against medical advice (07) ==
LOC: ER 18:19
DX: R13.10 Dysphagia, unspecified (principal)
CPT/HCPCS: 99281

== ENCOUNTER 2021-06-19 19:15 | Emergency (ER) | payer MEDICARE, MEDICAID ==
[~2021-06-19] VITALS: Ht 170.2 cm; Wt 70.0 kg
[~2021-06-19 19:15] MED LIST changes: +ASPI-867 PO; -ASPI325T85 PO
[2021-06-19 20:29] LABS: BASOPHILS % 1.2 % (0.0-2.0); EOSINOPHILS % 1.6 % (0.0-5.0); HEMATOCRIT. 32.5 % (42.0-52.0); HEMOGLOBIN. 10.6 g/dL (14.0-18.0); MEAN CORPUSCULAR HEMOGLOBIN 28.1 pg (28.0-32.0); MEAN CORPUSCULAR VOLUME 85.9 fL (80.0-94.0); MEAN PLATELET VOLUME 6.9 fl (7.4-10.4); NEUTROPHILS % 49.2 % (40.0-76.0); PLATELET 223 x1000/uL (130-400); RED BLOOD CELL COUNT 3.79 mill/uL (4.7-6.1); RED CELL DISTRIBUTION WIDTH 17.8 % (11.6-14.6)
[2021-06-19 20:35] LABS: CHLORIDE 108 mEq/L (98-107)
[2021-06-19 23:26] VITALS: BP 119/53
== END 2021-06-19 23:49 | disposition home or self-care (01) ==
LOC: ER 19:15
DX: R07.89 Other chest pain (principal); I10 Essential (primary) hypertension; J44.9 Chronic obstructive pulmonary disease, unspecified; E78.00 Pure hypercholesterolemia, unspecified; K74.60 Unspecified cirrhosis of liver; Z86.19 Personal history of other infectious and parasitic diseases
CPT/HCPCS: 36415; 71045; 80053; 83880; 84484; 85025; 93005; 99285

== ENCOUNTER 2023-08-30 17:53 | Emergency (ER) | payer MEDICARE, MEDICAID ==
[~2023-08-30] VITALS: Ht 177.8 cm; Wt 80.0 kg
[~2023-08-30 17:53] MED LIST changes: -ASPI-867 PO; -DOCU250C89 PO; +PROT40 MT; +SUCR1TAB30 MT
[2023-08-30 17:56] VITALS: O2SAT 96
[2023-08-30] MEDS ORDERED: HYDROCODONE/ACETAMINOPHEN 5/325MG TABLET PO ONE (18:30)
[2023-08-30] MEDS ORDERED: IBUPROFEN 600MG TABLET PO ONE (18:30)
[2023-08-30] MEDS ORDERED: HYDR-4001 MT (19:28)
[2023-08-30] MEDS ORDERED: TOPUD MT (19:28)
[2023-08-30] MEDS ORDERED: GABA-529 MT (19:28)
[2023-08-30 20:00] VITALS: BP 142/86; PULSE 84; RESP 19; TEMP 98.1
== END 2023-08-30 20:00 | disposition home or self-care (01) ==
LOC: ER 17:53
DX: M17.0 Bilateral primary osteoarthritis of knee (principal); I10 Essential (primary) hypertension; E78.00 Pure hypercholesterolemia, unspecified; J44.1 Chronic obstructive pulmonary disease with (acute) exacerbation; Z86.39 Personal history of other endocrine, nutritional and metabolic disease
CPT/HCPCS: 99283